=== PATIENT | male | born 1990 | race Caucasian/White ===

== ENCOUNTER 2023-11-30 10:52 | Emergency (ER) | payer OTHER ==
[~2023-11-30] VITALS: Ht 180.3 cm; Wt 94.5 kg
[2023-11-30] MEDS: IBUPROFEN 600MG TAB PO ONE (15:15)
[2023-11-30] MEDS ORDERED: METH-1165 PO (15:18)
[2023-11-30] MEDS ORDERED: NAPR-837 PO (15:18)
[2023-11-30] MEDS: ACETAMINOPHEN 325 MG TAB PO ONE (15:35)
[2023-11-30 15:38] VITALS: BP 139/87; TEMP 97.2; O2SAT 100
== END 2023-11-30 15:41 | disposition home or self-care (01) ==
LOC: M ED 10:52
DX: S13.4XXA Sprain of ligaments of cervical spine, initial encounter (principal); Y92.410 Unspecified street and highway as the place of occurrence of the external cause; Y93.9 Activity, unspecified; Y99.9 Unspecified external cause status; V49.50XA Passenger injured in collision with unspecified motor vehicles in traffic accident, initial encounter; Z79.899 Other long term (current) drug therapy